=== PATIENT | male | born 1970 | race Caucasian/White ===

== ENCOUNTER 2021-09-07 23:30 | Inpatient (IN) | payer MEDICAID, OTHER ==
[2021-09-08 06:32] LABS: Basophils # (A) 0.1 k/uL (0-0.2); Basophils % (A) 2 %; Eosinophils # (A) 0.2 k/uL (0-0.7); Eosinophils % (A) 3 %; HCT 46.2 % (39.0-53.0); HGB 15.1 gm/dL (13.0-17.5); Lymphocytes # (A) 2.8 k/uL (1.0-4.8); Lymphocytes % (A) 33 %; MCH 30.1 pg (25.0-35.0); MCHC 32.7 g/dL (31.0-37.0); MCV 91.9 fL (80.0-100.0); Mean Platelet Volume 7.8; Monocytes # (A) 0.4 k/uL (0-1.0); Monocytes % (A) 4 %; Neutrophils # (A) 4.7 k/uL (1.3-7.7); Neutrophils % (A) 57 %; Platelet Count 199 k/uL (150-450); RBC 5.02 m/uL (4.30-5.90); RDW 12.8 % (11.5-15.5); WBC 8.3 k/uL (3.8-10.6)
[2021-09-08 06:36] LABS: Amorphous Sediment,Urine Rare /hpf; Appearance,Urine Clear (Clear); Bilirubin,Urine Negative (Negative); Blood,Urine Negative (Negative); Color,Urine Yellow; Glucose,Urine (UA) Negative (Negative); Hyaline Casts,Urine 5 /lpf (0-2); Ketones,Urine Negative (Negative); Leukocyte Esterase,Urine Negative (Negative); Mucus,Urine Many /hpf; Nitrite,Urine Negative (Negative); PH, Urine 5.5 (5.0-8.0); Protein,Urine 1+ (Negative); RBC,Urine 2 /hpf (0-5); Specific Gravity,Urine 1.036 (1.001-1.035); Squamous Epithelial Cell,Urine <1 /hpf (0-4); WBC,Urine 1 /hpf (0-5)
--- NOTE | 2021-09-08 06:41 | ED ---
Psych HPI - General Chief Complaint: Psychiatric Symptoms Stated Complaint: Mental Health Time Seen by Provider: 09/08/21 00:33 Source: patient Mode of arrival: ambulatory - History of Present Illness Initial Comments: This patient is a 50-year-old man who presents here to have evaluation of depressed mood and suicidal ideation. The patient states that his symptoms of been getting worse for couple of weeks. MD Complaint: suicidal ideation, feels depressed Onset/Timin -: week(s) Associated Psychiatric Symptoms: depression, suicidal ideation History of same: Yes Quality: getting worse Improves With: none Worsens With: none - Related Data Allergies Allergy/AdvReac Type Severity Reaction Status Date / Time No Known Allergies Allergy Verified 09/07/21 23:35 Review of Systems ROS Statement: Those systems with pertinent positive or pertinent negative responses have been documented in the HPI. ROS Other: All systems not noted in ROS Statement are negative. Constitutional: Denies: fever, weakness Eyes: Denies: vision change Respiratory: Denies: cough, dyspnea Cardiovascular: Denies: chest pain, palpitations Gastrointestinal: Denies: abdominal pain, vomiting, diarrhea Genitourinary: Denies: dysuria, hematuria Musculoskeletal: Denies: back pain Skin: Denies: rash Neurological: Reports: headache. Denies: weakness, numbness, paresthesias Past Medical History Past Medical History: Hypertension Additional Past Medical History / Comment(s): CABG 2020 History of Any Multi-Drug Resistant Organisms: None Reported Additional Past Surgical History / Comment(s): CABG 2020 Past Psychological History: No Psychological Hx Reported Smoking Status: Current every day smoker Past Alcohol Use History: Occasional Past Drug Use History: Cocaine General Exam General appearance: alert, in no apparent distress Head exam: Present: atraumatic, normocephalic Eye exam: Present: normal appearance. Absent: scleral icterus, conjunctival injection Neck exam: Present: normal inspection, full ROM Respiratory exam: Present: normal lung sounds bilaterally. Absent: respiratory distress, wheezes, rales, rhonchi, stridor Cardiovascular Exam: Present: regular rate, normal rhythm, normal heart sounds. Absent: systolic murmur, diastolic murmur, rubs, gallop GI/Abdominal exam: Present: soft. Absent: distended, tenderness, guarding, adelina ound, rigid, mass Extremities exam: Present: normal inspection, normal capillary refill. Absent: pedal edema, calf tenderness Back exam: Present: normal inspection. Absent: CVA tenderness (R), CVA tenderness (L) Skin exam: Present: warm, dry, intact, normal color. Absent: rash Course Vital Signs 09/07/21 09/08/21 09/08/21 23:31 03:04 04:05 Temperature 96.9 F L 97.9 F Pulse Rate 89 60 Respiratory 16 16 16 Rate Blood Pressure 164/104 153/90 O2 Sat by Pulse 98 96 Oximetry 09/08/21 09/08/21 05:06 06:09 Temperature Pulse Rate Respiratory 16 16 Rate Blood Pressure O2 Sat by Pulse Oximetry Medical Decision Making - Lab Data Result diagrams: 09/08/21 06:23 Lab Results 09/08/21 09/08/21 Range/Units 06: 06:23 WBC 8.3 (3.8-10.6) k/uL RBC 5.02 (4.30-5.90) m/uL Hgb 15.1 (13.0-17.5) gm/dL Hct 46.2 (39.0-53.0) % MCV 91.9 (80.0-100.0) fL MCH 30.1 (25.0-35.0) pg MCHC 32.7 (31.0-37.0) g/dL RDW 12.8 (11.5-15.5) % Plt Count 199 (150-450) k/uL MPV 7.8 Neutrophils % 57 % Lymphocytes % 33 % Monocytes % 4 % Eosinophils % 3 % Basophils % 2 % Neutrophils # 4.7 (1.3-7.7) k/uL Lymphocytes # 2.8 (1.0-4.8) k/uL Monocytes # 0.4 (0-1.0) k/uL Eosinophils # 0.2 (0-0.7) k/uL Basophils # 0.1 (0-0.2) k/uL Urine Color Yellow Urine Appearance Clear (Clear) Urine pH 5.5 (5.0-8.0) Ur Specific [place] 1.036 H (1.001-1.035) Urine Protein 1+ H (Negative) Urine Glucose (UA) Negative (Negative) Urine Ketones Negative (Negative) Urine Blood Negative (Negative) Urine Nitrite Negative (Negative) Urine Bilirubin Negative (Negative) Urine Urobilinogen 4.0 (<2.0) mg/dL Ur Leukocyte Esterase Negative (Negative) Urine RBC 2 (0-5) /hpf Urine WBC 1 (0-5) /hpf Ur Squamous Epith Cells <1 (0-4) /hpf Amorphous Sediment Rare H (None) /hpf Hyaline Casts 5 H (0-2) /lpf Urine Mucus Many H (None) /hpf Disposition Clinical Impression: Mood disorder Disposition: ADMITTED IP TO THIS HOSP Condition: Good Is patient prescribed a controlled substance at d/c from ED?: No Referrals: None,Stated [Primary Care Provider] - 1-2 days
[2021-09-08 06:44] LABS: ALT 12 U/L (4-49); AST 20 U/L (17-59); African American GFR (CKD) >90 (>60 ml/min/1.73 sqM); Albumin 3.9 g/dL (3.5-5.0); Alkaline Phosphatase 83 U/L (38-126); Anion Gap 7 mmol/L; Blood Urea Nitrogen 21 mg/dL (9-20); Calcium 8.7 mg/dL (8.4-10.2); Carbon Dioxide 25 mmol/L (22-30); Chloride 107 mmol/L (98-107); Glucose 104 mg/dL (74-99); Non-African American GFR(CKD) 87 (>60 ml/min/1.73 sqM); Potassium 2.9 mmol/L (3.5-5.1); Sodium 139 mmol/L (137-145); Total Bilirubin 0.6 mg/dL (0.2-1.3); Total Protein 6.1 g/dL (6.3-8.2)
[2021-09-08 06:53] LABS: Amphetamine Screen,Urine Detected (NotDetected); Barbiturate Screen,Urine Not Detected (NotDetected); Benzodiazepines Screen,Urine Not Detected (NotDetected); Cocaine Screen,Urine Detected (NotDetected); Methadone Screen, Urine Not Detected (NotDetected); Opiate Screen,Urine Not Detected (NotDetected); Oxycodone Screen, Urine Not Detected (NotDetected); Phencyclidine Screen,Urine Not Detected (NotDetected); Tricyclic Antidepressant,Urine Not Detected (NotDetected); Urn Cannabinoid Scrn Not Detected (NotDetected)
[2021-09-08] MEDS ORDERED: ACETAMINOPHEN TAB 325 MG TAB PO PRN (07:15)
[2021-09-08] MEDS ORDERED: MAG HYDROX/AL HYDROX/SIMETH 30 ML CUP PO PRN (07:15)
[2021-09-08] MEDS ORDERED: LORazepam 1 MG TAB PO PRN (07:15)
[2021-09-08] MEDS ORDERED: MAGNESIUM HYDROXIDE 2,400 MG/10 ML CUP PO PRN (07:15)
[2021-09-08] MEDS ORDERED: HALOPERIDOL LACTATE 5 MG/ML 1 ML VIAL IM PRN (07:15)
[2021-09-08] MEDS ORDERED: haloperidoL 5 MG TAB PO PRN (07:17)
[2021-09-08] MEDS ORDERED: LORazepam 2 MG/ML INJ IM PRN (07:17)
[2021-09-08] MEDS ORDERED: POTASSIUM CHLORIDE ER 20 MEQ TAB.ER PO STA (07:21)
[2021-09-08] MEDS: NICOTINE 14MG/24HR PATCH TRANSDERM SCH (09:19)
[2021-09-08 10:04] VITALS: RESP 18
[2021-09-08] MEDS: carvediloL 3.125 MG TAB PO SCH (17:54)
[2021-09-08] MEDS: MIRTAZAPINE 15 MG TAB PO SCH (23:00)
--- NOTE | 2021-09-09 08:27 | P.HP ---
Psychiatric H&P - . H&P Date: 09/08/21 History & Physical: Allergies Allergy/AdvReac Type Severity Reaction Status Date / Time No Known Allergies Allergy Verified 09/08/21 11:47 Vital Signs Temp 97.5 F L 09/09/21 07:01 Pulse 54 L 09/09/21 07:01 Resp 18 09/09/21 07:01 BP 171/83 09/09/21 07:01 Pulse Ox 96 09/08/21 08:07 FiO2 Intake & Output 09/08/21 09/09/21 09/09/21 18:59 06:59 18:59 Weight 74.162 kg Laboratory Last Values WBC 8.3 k/uL (3.8-10.6) 09/08/21 06:23 RBC 5.02 m/uL (4.30-5.90) 09/08/21 06:23 Hgb 15.1 gm/dL (13.0-17.5) 09/08/21 06:23 Hct 46.2 % (39.0-53.0) 09/08/21 06:23 MCV 91.9 fL (80.0-100.0) 09/08/21 06:23 MCH 30.1 pg (25.0-35.0) 09/08/21 06:23 MCHC 32.7 g/dL (31.0-37.0) 09/08/21 06:23 RDW 12.8 % (11.5-15.5) 09/08/21 06:23 Plt Count 199 k/uL (150-450) 09/08/21 06:23 MPV 7.8 09/08/21 06:23 Neutrophils % 57 % 09/08/21 06:23 Lymphocytes % 33 % 09/08/21 06:23 Monocytes % 4 % 09/08/21 06:23 Eosinophils % 3 % 09/08/21 06:23 Basophils % 2 % 09/08/21 06:23 Neutrophils # 4.7 k/uL (1.3-7.7) 09/08/21 06:23 Lymphocytes # 2.8 k/uL (1.0-4.8) 09/08/21 06:23 Monocytes # 0.4 k/uL (0-1.0) 09/08/21 06:23 Eosinophils # 0.2 k/uL (0-0.7) 09/08/21 06:23 Basophils # 0.1 k/uL (0-0.2) 09/08/21 06:23 Sodium 139 mmol/L (137-145) 09/08/21 06:23 Potassium 3.7 mmol/L (3.5-5.1) 09/08/21 16:30 Chloride 107 mmol/L (98-107) 09/08/21 06:23 Carbon Dioxide 25 mmol/L (22-30) 09/08/21 06:23 Anion Gap 7 mmol/L 09/08/21 06:23 BUN 21 mg/dL (9-20) H 09/08/21 06:23 Creatinine 0.99 mg/dL (0.66-1.25) 09/08/21 06:23 Est GFR (CKD-EPI)AfAm >90 (>60 ml/min/1.73 sqM) 09/08/21 06:23 Est GFR (CKD-EPI)NonAf 87 (>60 ml/min/1.73 sqM) 09/08/21 06:23 Glucose 104 mg/dL (74-99) H 09/08/21 06:23 Calcium 8.7 mg/dL (8.4-10.2) 09/08/21 06:23 Total Bilirubin 0.6 mg/dL (0.2-1.3) 09/08/21 06: AST 20 U/L (17-59) 09/08/21 06:23 ALT 12 U/L (4-49) 09/08/21 06:23 Alkaline Phosphatase 83 U/L (38-126) 09/08/21 06:23 Total Protein 6.1 g/dL (6.3-8.2) L 09/08/21 06:23 Albumin 3.9 g/dL (3.5-5.0) 09/08/21 06:23 Urine Color Yellow 09/08/21 06:23 Urine Appearance Clear (Clear) 09/08/21 06:23 Urine pH 5.5 (5.0-8.0) 09/08/21 06:23 Ur Specific [place] 1.036 (1.001-1.035) H 09/08/21 06:23 Urine Protein 1+ (Negative) H 09/08/21 06:23 Urine Glucose (UA) Negative (Negative) 09/08/21 06:23 Urine Ketones Negative (Negative) 09/08/21 06:23 Urine Blood Negative (Negative) 09/08/21 06:23 Urine Nitrite Negative (Negative) 09/08/21 06:23 Urine Bilirubin Negative (Negative) 09/08/21 06:23 Urine Urobilinogen 4.0 mg/dL (<2.0) 09/08/21 06:23 Ur Leukocyte Esterase Negative (Negative) 09/08/21 06:23 Urine RBC 2 /hpf (0-5) 09/08/21 06:23 Urine WBC 1 /hpf (0-5) 09/08/21 06:23 Ur Squamous Epith Cells <1 /hpf (0-4) 09/08/21 06:23 Amorphous Sediment Rare /hpf (None) H 09/08/21 06:23 Hyaline Casts 5 /lpf (0-2) H 09/08/21 06:23 Urine Mucus Many /hpf (None) H 09/08/21 06:23 Urine Opiates Screen Not Detected (NotDetected) 09/08/21 06:23 Ur Oxycodone Screen Not Detected (NotDetected) 09/08/21 06:23 Urine Methadone Screen Not Detected (NotDetected) 09/08/21 06:23 Ur Propoxyphene Screen Not Detected (NotDetected) 09/08/21 06:23 Ur Barbiturates Screen Not Detected (NotDetected) 09/08/21 06:23 U Tricyclic Antidepress Not Detected (NotDetected) 09/08/21 06:23 Ur Phencyclidine Scrn Not Detected (NotDetected) 09/08/21 06:23 Ur Amphetamines Screen Detected (NotDetected) H 09/08/21 06:23 U Methamphetamines Scrn Detected (NotDetected) H 09/08/21 06:23 U Benzodiazepines Scrn Not Detected (NotDetected) 09/08/21 06:23 Urine Cocaine Screen Detected (NotDetected) H 09/08/21 06:23 U Marijuana (THC) Screen Not Detected (NotDetected) 09/08/21 06:23 Coronavirus (PCR) Not Detected (Not Detectd) 09/08/21 06:23 09/09/21 08:20 This indicates a 50-year-old male who comes in due to severe depression. Diagnosis: Major depression recurrent nonpsychotic severe Symptoms: The patient is complaining of inability to sleep poor appetite can't concentrate no energy no ability to motivate her organize a response to his life problems. He does feel suicidal and hopeless Subjective: The patient recently moved to [place] because of a job. However he injured his ankle at work and he was working through a temporary agency so the place is working for wouldn't give him Workmen's Compensation or cover for his injury nor what the [facility] help agency. They found himself without a job and without a place to stay. He says that he has a long-term history of struggling with depression but has just toughed it through and not taken medicine in the past. Social history: The patient is the oldest of 3 siblings he says his 2 siblings are doing well fact he denies psychiatric problems in the family except that his father was in [place] and was stable. His parents when the patient was 3 and dad was out of his life dying at age 56 of unknown reasons. His mother and her side the family are stable. As noted he fell and was normal as far as he notes School he was able to earn a GED No history Legal the patient was raised in a rough part of [place] and he was in gangs and bought and sold drugs. Substance abuse: The patient has been a long-term user of cocaine he was clean for 5 months before losing this job and has gone back to using cocaine. He says it costs $100 for each time and he can keep that up for long as he has very little money. Mental status exam: The patient is quite dysfunctional poor ADLs decreased eye contact sad affect. Short-term memory is poor I gave him 3 objects to remember and had to repeat them for immediate recall and he could not remember any after 3 minutes when asked the name didn't presence he said Kim that he thought for a while guessed that Obama and just could not remember. When asked to name the [place] he said the [place] and [facility]. When asked to subtract 7 from 100 he got 92. When asked AND states her life he had no idea. When asked how her cats and snakes alike and different from the stone he had no idea when asked which of the 3 was not a life he said the stone. So what was true about cats and snakes while they're both alive that he could not think of any other similarity. When given the proverb the grass looks screen on that side of the fence he said jump over the fence. He is concrete as very poor problem solving abilities. However he does have insight when I reviewed the elements of function impacted by depression and asked him whether he thinks his current depression is just from the stress in his life or whether he is would need medications to handle it he felt he didn't need medications. Plan number to see if he tolerates mirtazapine and works on all 3 serotonin norepinephrine and dopamine and is not addicting and with his having an use cocaine I think he really needs some help on the dopamine.
[2021-09-09 08:54] LABS: ALT 11 U/L (4-49); AST 17 U/L (17-59); African American GFR (CKD) 82 (>60 ml/min/1.73 sqM); Albumin 3.8 g/dL (3.5-5.0); Alkaline Phosphatase 82 U/L (38-126); Anion Gap 5 mmol/L; Bilirubin, Delta 0.1 mg/dL (0.0-0.2); Bilirubin,Unconjugated 0.5 mg/dL (0.0-1.1); Blood Urea Nitrogen 15 mg/dL (9-20); Calcium 9.1 mg/dL (8.4-10.2); Carbon Dioxide 29 mmol/L (22-30); Chloride 105 mmol/L (98-107); Glucose 92 mg/dL (74-99); Magnesium 1.9 mg/dL (1.6-2.3); Non-African American GFR(CKD) 71 (>60 ml/min/1.73 sqM); Potassium 3.8 mmol/L (3.5-5.1); Sodium 139 mmol/L (137-145); Total Bilirubin 0.6 mg/dL (0.2-1.3); Total Protein 6.1 g/dL (6.3-8.2)
[2021-09-09] MEDS: DILTIAZEM CD 120 MG CAP.ER.24H PO SCH (09:24)
[2021-09-09] MEDS: lisinopriL 10 MG TAB PO SCH (09:24)
[2021-09-09] MEDS: carvediloL 3.125 MG TAB PO SCH ×2 (09:24→17:45)
[2021-09-09] MEDS: CLOPIDOGREL 75 MG TAB PO SCH (09:24)
[2021-09-09] MEDS: PANTOPRAZOLE 40 MG TABLET PO SCH (09:24)
[2021-09-09] MEDS: ATORVASTATIN 80 MG TAB PO SCH (09:24)
[2021-09-09] MEDS: NICOTINE 14MG/24HR PATCH TRANSDERM SCH (09:25)
--- NOTE | 2021-09-09 10:26 | P.HPIM ---
History of Present Illness H&P Date: 09/09/21 Chief Complaint: Severe depression 50-year-old male with past medical history significant for coronary disease status post bypass surgery in [place] in 2020 patient is not very good historian he stated that he had 4 bypass surgeries. He denies any history of diabetes he does have history hypertension. Patient was admitted to the psych floor for severe depression and suicidal ideation. Drug screen is positive for cocaine and methamphetamine. Patient stated that he is a smoker smokes since he was 12 years old and continues to smoke 1 pack per day. Drinks alcohol occasionally. Patient denies any history of cancer, stroke, DVT or PE. Patient is alert oriented 3. He denies any chest pain or shortness of breath. He denies any nausea vomiting abdominal pain. Patient denies any recent travel sick contact. Review of systems: All 14 review of systems evaluated and all negative except for above. Physical exam patient: General: non toxic, no distress, appears at stated age Derm: warm, dry Head: atraumatic, normocephalic, symmetric Eyes: EOMI, no lid lag, anicteric sclera Mouth: no lip lesion, mucus membranes moist Cardiovascular: S1S2 reg, no murmur, positive posterior tibial pulse bilateral, Lungs: CTA bilateral, no rhonchi, no rales , no accessory muscle use Abdominal: soft, nontender to palpation, no guarding, no appreciable organomegaly Ext: no gross muscle atrophy, no edema, no contractures Neuro: CN II-XI grossly intact, no focal neuro deficits Psych: Alert, oriented, appropriate affect Social history: The patient is the oldest of 3 siblings he says his 2 siblings are doing well fact he denies psychiatric problems in the family except that his father was in [place] and was stable. His parents when the patient was 3 and dad was out of his life dying at age 56 of unknown reasons. His mother and her side the family are stable. As noted he fell and was normal as far as he notes School he was able to earn a GED No history Legal the patient was raised in a rough part of [place] and he was in gangs and bought and sold drugs. Substance abuse: The patient has been a long-term user of cocaine he was clean for 5 months before losing this job and has gone back to using cocaine. He says it costs $100 for each time and he can keep that up for long as he has very little money. Assessment and plan: #History of coronary disease status post CABG August 2020 -Obtain old records from his last admissions at [place] -Resume home medications #Hypokalemia -Replaced #Polysubstance abuse #Ongoing tobacco abuse -Patient was counseled regarding smoking cessation and supplement abuse #Severe depression with suicidal ideation -Regimen per psych team. Past Medical History Past Medical History: Hypertension Additional Past Medical History / Comment(s): CABG 2020 History of Any Multi-Drug Resistant Organisms: None Reported Additional Past Surgical History / Comment(s): CABG 2020 Past Anesthesia/Blood Transfusion Reactions: No Reported Reaction Past Psychological History: Depression Smoking Status: Current every day smoker Past Alcohol Use History: Occasional Past Drug Use History: Cocaine, Methamphetamine Additional Drug Use History / Comment(s): UDS positive for amphetamines, meth, and cocaine. Medications and Allergies Home Medications Medication Instructions Recorded Confirmed Type Atorvastatin [Lipitor] 80 mg PO DAILY 09/08/21 09/08/21 History Clopidogrel [Plavix] 75 mg PO DAILY 09/08/21 09/08/21 History Diltiazem Cd [Cardizem CD] 120 mg PO DAILY 09/08/21 09/08/21 History Pantoprazole [Protonix] 40 mg PO DAILY 09/08/21 09/08/21 History carvediloL [Coreg] 3.125 mg PO BID 09/08/21 09/08/21 History lisinopriL [Zestril] 10 mg PO DAILY 09/08/21 09/08/21 History Allergies Allergy/AdvReac Type Severity Reaction Status Date / Time No Known Allergies Allergy Verified 09/08/21 11:47 Physical Exam Vitals: Vital Signs Temp Pulse Resp BP 09/09/21 07:01 97.5 F L 54 L 18 171/83 09/08/21 17:51 102 H 153/90 Intake and Output 09/08/21 09/09/21 09/09/21 22:59 06:59 14:59 Other: Weight 75.3 kg Results CBC & Chem 7: 09/08/21 06:23 09/09/21 07:56 Labs: Abnormal Lab Results - Last 24 Hours (Table) 09/09/21 Range/Units 07:56 Total Protein 6.1 L (6.3-8.2) g/dL Thrombosis Risk Factor Assmnt - Choose All That Apply Any of the Below Risk Factors Present?: Yes Each Factor Represents 1 point: Age 41-60 years Other Risk Factors: No Other congenital or acquired thrombophilia - If yes, enter type in comment: No Thrombosis Risk Factor Assessment Total Risk Factor Score: 1 Thrombosis Risk Factor Assessment Level: Low Risk
[2021-09-09 12:01] LABS: Chol/HDL Ratio 4.84 Ratio; LDL Cholesterol,Calculated 115.8 mg/dL (0.0-131.0)
--- NOTE | 2021-09-09 12:32 | P.PN ---
Subjective Progress Note Date: 09/09/21 Principal diagnosis: Major depression recurrent severe nonpsychotic Cocaine use disorder Subjective: Patient is a little sleepy but not severe, worrying about the future and feeling kind of hopeless. Substance abuse: The patient has been a long-term user of cocaine he was clean for 5 months before losing this job and has gone back to using cocaine. He says it costs $100 for each time and he can keep that up for long as he has very little money. Mental status exam: The patient is quite dysfunctional poor ADLs decreased eye contact sad affect. Short-term memory is poor I gave him 3 objects to remember and had to repeat them for immediate recall and he could not remember any after 3 minutes when asked the name didn't presence he said Kim that he thought for a while guessed that [place] and just could not remember. When asked to name the [facility] [employer] he said the [facility] and [facility]. When asked to subtract 7 from 100 he got 92. When asked AND states her life he had no idea. When asked how her cats and snakes alike and different from the stone he had no idea when asked which of the 3 was not a life he said the stone. So what was true about cats and snakes while they're both alive that he could not think of any other similarity. When given the proverb the grass looks screen on that side of the fence he said jump over the fence. He is concrete as very poor problem solving abilities. However he does have insight when I reviewed the elements of function impacted by depression and asked him whether he thinks his current depression is just from the stress in his life or whether he is would need medications to handle it he felt he didn't need medications. Plan: He continues to need hospitalization as he is hopeless and depressed has no place to go and needs help both with the cocaine in the depression and some social resources. Continue mirtazapine and consider increasing dose as that works on all 3 serotonin, norepinephrine, and dopamine and is not addicting and with his having a cocaine use disorder, I think he really needs some help on the dopamine. Objective - Vital Signs Vital signs: Vital Signs Temp 97.5 F L 09/09/21 07:01 Pulse 54 L 09/09/21 07:01 Resp 18 09/09/21 07:01 BP 171/83 09/09/21 07:01 Pulse Ox 96 09/08/21 08:07 FiO2 Intake & Output 09/08/21 09/09/21 09/09/21 18:59 06:59 18:59 Weight 74.162 kg 75.3 kg - Labs CBC & Chem 7: 09/08/21 06:23 09/09/21 07:56 Labs: Abnormal Lab Results - Last 24 Hours (Table) 09/09/21 Range/Units 07:56 Total Protein 6.1 L (6.3-8.2) g/dL Triglycerides 159.00 H (0.00-149.00) mg/dL HDL Cholesterol 38.40 L (40.00-60.00) mg/dL
[2021-09-09] MEDS: MIRTAZAPINE 15 MG TAB PO SCH (20:44)
[2021-09-10 07:59] LABS: African American GFR (CKD) >90 (>60 ml/min/1.73 sqM); Anion Gap 5 mmol/L; Blood Urea Nitrogen 12 mg/dL (9-20); Carbon Dioxide 26 mmol/L (22-30); Chloride 108 mmol/L (98-107); Glucose 89 mg/dL (74-99); Magnesium 1.9 mg/dL (1.6-2.3); Non-African American GFR(CKD) 81 (>60 ml/min/1.73 sqM); Potassium 3.9 mmol/L (3.5-5.1); Sodium 139 mmol/L (137-145)
[2021-09-10] MEDS: lisinopriL 10 MG TAB PO SCH (08:50)
[2021-09-10] MEDS: ATORVASTATIN 80 MG TAB PO SCH (08:50)
[2021-09-10] MEDS: CLOPIDOGREL 75 MG TAB PO SCH (08:50)
[2021-09-10] MEDS: DILTIAZEM CD 120 MG CAP.ER.24H PO SCH (08:50)
[2021-09-10] MEDS: carvediloL 3.125 MG TAB PO SCH ×2 (08:50→17:46)
[2021-09-10] MEDS: PANTOPRAZOLE 40 MG TABLET PO SCH (08:50)
[2021-09-10] MEDS: NICOTINE 14MG/24HR PATCH TRANSDERM SCH (08:52)
--- NOTE | 2021-09-10 11:30 | P.PN ---
Progress Note - Text Progress Note Date: 09/10/21 Interval History: Patient was seen resting in bed and was directable and agreeable to speak with web content writer in his room. Earlier, the patient continues to endorse suicidal ideation the context of chronic homelessness, lack of support, and lack of finances. Patient reports that he currently has no home, no vehicle, and is originally from [facility] [place]. The patient expresses that he has been engaging in significant substance use with his drugs of choice being crack cocaine, alcohol, and occasional methamphetamines. The patient denies any recent use of any illicit drugs however did test positive for methamphetamines upon admission. He states he looks to obtain sober living housing. He was encouraged to contact the access number. The patient is currently denying any chest pain, Jaclyn of breath, palpitations, lightheadedness, or any issues regarding his cardiov ascular health. Medical is following. Mental Status Exam: General Appearance: Patient appears to be stated age is alert, directable, and cooperative. Behavior: Patient is calmly lying down in bed without any agitated behavior. Fair eye contact. Speech: Patient's speech is fluent and nonpressured. Mood/Affect: Mood is described as depressed, affect is incongruent and somewhat euthymic. Suicidality/Homicidality: Patient reports suicidal ideation however denies any homicidal ideation. Perceptions: Patient denies any visual hallucinations and denies any auditory hallucinations Though content/process: There is no evidence of any delusional thought content and thought process is linear and goal-directed. Patient is guarded and evasive regarding substance use. Memory and concentration: AOX3, grossly intact for the purposes of this session Judgment and insight: Fair Vital Signs Temp 97.5 F L 09/09/21 07:01 Pulse 67 09/10/21 08:52 Resp 18 09/10/21 08:52 BP 192/92 09/10/21 08:52 Pulse Ox 96 09/08/21 08:07 FiO2 Intake & Output 09/09/21 09/10/21 09/10/21 18:59 06:59 18:59 Weight 75.3 kg Laboratory Results - Last 24 Hours 09/09/21 09/09/21 09/10/21 07:56 07:56 06:54 Sodium 139 Potassium 3.9 Chloride 108 H Carbon Dioxide 26 Anion Gap 5 BUN 12 Creatinine 1.06 Est GFR (CKD-EPI)AfAm >90 Est GFR (CKD-EPI)NonAf [address] Glu mg/dL 120 Hemoglobin A1c 5.8 Calcium 9.0 Magnesium 1.9 Triglycerides 159.00 H Cholesterol 186.00 LDL Cholesterol, Calc 115.8 VLDL Cholesterol, Calc 31.80 HDL Cholesterol 38.40 L Cholesterol/HDL Ratio 4.84 Assessment Major depressive disorder, recurrent, severe Cocaine use disorder Methamphetamine use disorder Alcohol use disorder Tobacco use disorder Rule out antisocial personality disorder Plan: -Patient continues to meet criteria for inpatient psychiatric admission for symptom stabilization and safety. Patient has signed adult voluntary form and medication consent and was placed in patient's chart. -Medications: Continue Remeron 15 mg by mouth at bedtime for depression -When necessary Ativan and Haldol for agitation/aggression. -NRT - nicotine patch -SW on board for discharge planning. Encouraged the patient to participate in milieu.
[2021-09-10] MEDS: MIRTAZAPINE 15 MG TAB PO SCH (21:02)
[2021-09-11 06:58] VITALS: BP 177/98; PULSE 64; TEMP 99.4
[2021-09-11 07:37] LABS: Calcium 9.1 mg/dL (8.4-10.2); Magnesium 1.9 mg/dL (1.6-2.3); Potassium 4.5 mmol/L (3.5-5.1)
[2021-09-11] MEDS: carvediloL 3.125 MG TAB PO SCH (08:24)
[2021-09-11] MEDS: DILTIAZEM CD 120 MG CAP.ER.24H PO SCH (08:24)
[2021-09-11] MEDS: CLOPIDOGREL 75 MG TAB PO SCH (08:24)
[2021-09-11] MEDS: PANTOPRAZOLE 40 MG TABLET PO SCH (08:24)
[2021-09-11] MEDS: ATORVASTATIN 80 MG TAB PO SCH (08:24)
[2021-09-11] MEDS: lisinopriL 10 MG TAB PO SCH (08:24)
[2021-09-11] MEDS: NICOTINE 14MG/24HR PATCH TRANSDERM SCH (08:24)
--- NOTE | 2021-09-11 13:31 | P.DS ---
Providers Date of admission: 09/08/21 07:04 Expected date of discharge: 09/11/21 Attending physician: Omar Cobian MD Consults: 09/08/21 07:15 Consult Physician Routine Consulting Provider: Maria A Physician Consult Reason/Comments: Medical H&P Do you want consulting provider notified?: Yes Primary care physician: Stated None - Discharge Diagnosis(es) (1) Major depressive disorder Current Visit: Yes Status: Acute Priority: High (2) Cocaine use disorder Current Visit: Yes Status: Chronic Priority: Medium (3) Methamphetamine use disorder, moderate, dependence Current Visit: Yes Status: Chronic Priority: Medium (4) Alcohol use disorder Current Visit: Yes Status: Chronic Priority: Medium (5) Tobacco use disorder Current Visit: Yes Status: Chronic Priority: Medium Hospital Course: Admission HPI: Initial psychiatric evaluation was completed by Dr Maldonado on 09/09/2021 who wrote: "Major depression recurrent nonpsychotic severe Symptoms: The patient is complaining of inability to sleep poor appetite can't concentrate no energy no ability to motivate her organize a response to his life problems. He does feel suicidal and hopeless Subjective: The patient recently moved to [place] because of a job. However he injured his ankle at work and he was working through a temporary agency so the place is working for wouldn't give him Workmen's Compensation or cover for his injury nor what the [facility] help agency. They found himself without a job and without a place to stay. He says that he has a long-term history of struggling with depression but has just toughed it through and not taken medicine in the past." Hospital course: Upon admission to the unit patient was initially guarded however endorsing depression and suicidal ideation in the context of substance abuse. Patient was however directable and agreeable to commence treatment. Patient got along well with other patients on the unit and followed unit protocol. Patient was compliant with the medications and denied any side effects throughout hospital course. Patient was started on Remeron for management of his depression, insomnia, and appetite stimulation. Patient spoke of his stressors and engaged in therapy both group and individual. Patient was also seen by medical team for history and physical exam. With the course of the hospitalization, the patient displayed significant improvement although is very minimal and his engagement with milieu activities. The patient did test positive for illicit substances including amphetamines, methamphetamines, and cocaine. The patient had elevated blood pressure throughout the hospitalization however denied any significant cardiac symptoms. He reported no chest pain, shortness of breath, palpitations, or lightheadedness. He was also evaluated by the medical team for history and physical examination. On the day of discharge, the patient is not reporting any suicidal or homicidal ideation, intention, and/or plan. He is not reporting any auditory or visual hallucinations. He denies any paranoia or other delusions. The patient has been in adherent with his medication is not endorsing any significant side effects at this time. The patient does have a significant history of substance abuse however was counseled on abstaining from all substances including alcohol, marijuana, and especially methamphetamines and cocaine. The patient was offered inpatient substance abuse rehabilitation to which she declined. The patient denies any access to firearms or other weapons. The patient was counseled on the importance of medication adherence and appropriate outpatient follow-up. Prior to discharge, family meeting was arranged by clinical social worker to answer any questions and ensure safety. Mental status exam: General Appearance: Patient appears to be stated age is alert, pleasant, and cooperative. Patient is in no acute distress and has fair hygiene and grooming Behavior: Patient is calmly seated without any agitated behavior. Speech: Patient's speech is fluent and nonpressured. Mood/Affect: Patient reports their mood is "feeling good to go", affect is congruent and euthymic. Suicidality/Homicidality: Patient denies having any suicidal or homicidal ideation intent or plan. Perceptions: Patient denies any auditory or visual hallucinations. Though content/process: There is no evidence of any delusional thought content and thought process is linear and goal-directed. more future oriented Memory and concentration: AOX3, grossly intact for the purposes of this session. Can spell "WORLD" backwards correctly. Judgment and insight: Improved with guarded prognosis Vital Signs Temp 99.4 F 09/11/21 06:58 Pulse 64 09/11/21 06:58 Resp 18 09/10/21 08:52 BP 177/98 09/11/21 06:58 Pulse Ox 99 09/11/21 06:58 FiO2 Laboratory Results WBC 8.3 k/uL (3.8-10.6) 09/08/21 06:23 RBC 5.02 m/uL (4.30-5.90) 09/08/21 06:23 Hgb 15.1 gm/dL (13.0-17.5) 09/08/21 06:23 Hct 46.2 % (39.0-53.0) 09/08/21 06:23 MCV 91.9 fL (80.0-100.0) 09/08/21 06:23 MCH 30.1 pg (25.0-35.0) 09/08/21 06:23 MCHC 32.7 g/dL (31.0-37.0) 09/08/21 06:23 RDW 12.8 % (11.5-15.5) 09/08/21 06:23 Plt Count 199 k/uL (150-450) 09/08/21 06:23 MPV 7.8 09/08/21 06:23 Neutrophils % 57 % 09/08/21 06:23 Lymphocytes % 33 % 09/08/21 06:23 Monocytes % 4 % 09/08/21 06:23 Eosinophils % 3 % 09/08/21 06:23 Basophils % 2 % 09/08/21 06:23 Neutrophils # 4.7 k/uL (1.3-7.7) 09/08/21 06:23 Lymphocytes # 2.8 k/uL (1.0-4.8) 09/08/21 06:23 Monocytes # 0.4 k/uL (0-1.0) 09/08/21 06:23 Eosinophils # 0.2 k/uL (0-0.7) 09/08/21 06:23 Basophils # 0.1 k/uL (0-0.2) 09/08/21 06:23 Sodium 142 mmol/L (137-145) 09/11/21 06:44 Potassium 4.5 mmol/L (3.5-5.1) 09/11/21 06:44 Chloride 108 mmol/L (98-107) H 09/11/21 06:44 Carbon Dioxide 28 mmol/L (22-30) 09/11/21 06:44 Anion Gap 6 mmol/L 09/11/21 06:44 BUN 15 mg/dL (9-20) 09/11/21 06:44 Creatinine 1.16 mg/dL (0.66-1.25) 09/11/21 06:44 Est GFR (CKD-EPI)AfAm 84 (>60 ml/min/1.73 sqM) 09/11/21 06:44 Est GFR (CKD-EPI)NonAf 73 (>60 ml/min/1.73 sqM) 09/11/21 06:44 Glucose 86 mg/dL (74-99) 09/11/21 06:[address] Glu mg/dL 120 09/09/21 07:56 Hemoglobin A1c 5.8 % (0.0-6.0) 09/09/21 07:56 Calcium 9.1 mg/dL (8.4-10.2) 09/11/21 06:44 Magnesium 1.9 mg/dL (1.6-2.3) 09/11/21 06:44 Total Bilirubin 0.6 mg/dL (0.2-1.3) 09/09/21 07:56 Conjugated Bilirubin 0.0 mg/dL (0.0-0.3) 09/09/21 07:56 Unconjugated Bilirubin 0.5 mg/dL (0.0-1.1) 09/09/21 07:56 Delta Bilirubin 0.1 mg/dL (0.0-0.2) 09/09/21 07:56 AST 17 U/L (17-59) 09/09/21 07:56 ALT 11 U/L (4-49) 09/09/21 07:56 Alkaline Phosphatase 82 U/L (38-126) 09/09/21 07:56 Total Protein 6.1 g/dL (6.3-8.2) L 09/09/21 07:56 Albumin 3.8 g/dL (3.5-5.0) 09/09/21 07:56 Triglycerides 159.00 mg/dL (0.00-149.00) H 09/09/21 07:56 Cholesterol 186.00 mg/dL (0.00-200.00) 09/09/21 07:56 LDL Cholesterol, Calc 115.8 mg/dL (0.0-131.0) 09/09/21 07:56 VLDL Cholesterol, Calc 31.80 mg/dL (5.00-40.00) 09/09/21 07:56 HDL Cholesterol 38.40 mg/dL (40.00-60.00) L 09/09/21 07:56 Cholesterol/HDL Ratio 4.84 Ratio 09/09/21 07:56 TSH 0.692 mIU/L (0.465-4.680) 09/09/21 07:56 Urine Color Yellow 09/08/21 06:23 Urine Appearance Clear (Clear) 09/08/21 06:23 Urine pH 5.5 (5.0-8.0) 09/08/21 06:23 Ur Specific [place] 1.036 (1.001-1.035) H 09/08/21 06:23 Urine Protein 1+ (Negative) H 09/08/21 06:23 Urine Glucose (UA) Negative (Negative) 09/08/21 06:23 Urine Ketones Negative (Negative) 09/08/21 06:23 Urine Blood Negative (Negative) 09/08/21 06:23 Urine Nitrite Negative (Negative) 09/08/21 06:23 Urine Bilirubin Negative (Negative) 09/08/21 06:23 Urine Urobilinogen 4.0 mg/dL (<2.0) 09/08/21 06:23 Ur Leukocyte Esterase Negative (Negative) 09/08/21 06:23 Urine RBC 2 /hpf (0-5) 09/08/21 06:23 Urine WBC 1 /hpf (0-5) 09/08/21 06:23 Ur Squamous Epith Cells <1 /hpf (0-4) 09/08/21 06:23 Amorphous Sediment Rare /hpf (None) H 09/08/21 06:23 Hyaline Casts 5 /lpf (0-2) H 09/08/21 06:23 Urine Mucus Many /hpf (None) H 09/08/21 06:23 Urine Opiates Screen Not Detected (NotDetected) 09/08/21 06:23 Ur Oxycodone Screen Not Detected (NotDetected) 09/08/21 06:23 Urine Methadone Screen Not Detected (NotDetected) 09/08/21 06:23 Ur Propoxyphene Screen Not Detected (NotDetected) 09/08/21 06:23 Ur Barbiturates Screen Not Detected (NotDetected) 09/08/21 06:23 U Tricyclic Antidepress Not Detected (NotDetected) 09/08/21 06:23 Ur Phencyclidine Scrn Not Detected (NotDetected) 09/08/21 06:23 Ur Amphetamines Screen Detected (NotDetected) H 09/08/21 06:23 U Methamphetamines Scrn Detected (NotDetected) H 09/08/21 06:23 U Benzodiazepines Scrn Not Detected (NotDetected) 09/08/21 06:23 Urine Cocaine Screen Detected (NotDetected) H 09/08/21 06:23 U Marijuana (THC) Screen Not Detected (NotDetected) 09/08/21 06:23 Coronavirus (PCR) Not Detected (Not Detectd) 09/08/21 06:23 Allergies Allergy/AdvReac Type Severity Reaction Status Date / Time No Known Allergies Allergy Verified 09/08/21 11:47 Impression: Major depressive disorder, recurrent, severe Cocaine use disorder Methamphetamine use disorder Alcohol use disorder Tobacco use disorder Plan: -Continue with discharge today as patient has improved and stabilized psychiatrically and is not currently an imminent threat to himself and/or others. Patient will remain at chronically elevated risk for harm to self and/or others due to his impulsivity and polysubstance abuse. -Continue medications: Remeron 15 mg by mouth at bedtime for depression -Patient was counseled on the need for medication compliance and appropriate follow-up at mental health and also primary care for medical issues. Patient verbalized understanding and agreed. -Social work to arrange for and conduct family meeting to ensure safety upon discharge and answer any questions/concerns. Social work also to arrange for patients follow up appointments with [facility] for psychiatric care along with follow up with primary care provider. -Patient counseled on abstaining from recreational drugs and marijuana and alcohol. Was informed/educated on the adverse effects on their physical and mental health. Patient verbally agreed and understood. Patient was offered substance abuse treatment however declined at this time. -Patient was instructed to return to the hospital or seek immediate medical care if their psychiatric or medical symptoms do worsen or reoccur. -Psychoeducation and supportive therapy provided to patient. Risks and benefits of pharmacological treatment versus the risks and benefits of nontreatment weight and discussed. Informed consent discussion held. Common side effects of psychotropics discussed such as, but not limited to headache, GI disturbance, sexual dysfunction, movement disorders, sedation, and orthostatic hypotension. Life threatening and blackbox warnings of prescribed medications also discussed. Potential risks of operating a vehicle or heavy machinery discussed with patient at length. Advised on importance of compliance and a reliable and responsible manner. Patient advised to review FDA consumer labeling of all medications prior to taking. Patient verbalized understanding of potential risks, and agrees with current treatment plan. Patient advised to medically contact physician/emergency personnel if any acute changes in condition occur. Patient Condition at Discharge: Stable Plan - Discharge Summary Discharge Rx Participant: No New Discharge Prescriptions: New Mirtazapine [Remeron] 15 mg PO HS 30 Days tab Continue lisinopriL [Zestril] 10 mg PO DAILY carvediloL [Coreg] 3.125 mg PO BID Pantoprazole [Protonix] 40 mg PO DAILY Diltiazem Cd [Cardizem CD] 120 mg PO DAILY Atorvastatin [Lipitor] 80 mg PO DAILY Clopidogrel [Plavix] 75 mg PO DAILY Discharge Medication List Atorvastatin [Lipitor] 80 mg PO DAILY 09/08/21 [History] Clopidogrel [Plavix] 75 mg PO DAILY 09/08/21 [History] Diltiazem Cd [Cardizem CD] 120 mg PO DAILY 09/08/21 [History] Pantoprazole [Protonix] 40 mg PO DAILY 09/08/21 [History] carvediloL [Coreg] 3.125 mg PO BID 09/08/21 [History] lisinopriL [Zestril] 10 mg PO DAILY 09/08/21 [History] Mirtazapine [Remeron] 15 mg PO HS 30 Days tab 09/11/21 [Rx] Follow up Appointment(s)/Referral(s): [facility] [Outside] - 09/18/21 9:00 am (With intake counselor) None,Stated [Primary Care Provider] - 1-2 days [facility] [NON-STAFF] - 1 Week Patient Instructions/Handouts: How to Stop Smoking (DC), Mood Disorders (DC), Depression (DC) Activity/Diet/Wound Care/Special Instructions: Activity and diet as tolerated. Avoid the use of street drugs and alcohol. Take all medications as prescribed. When you are in need of refills on your medications please contact your medical provider and/or outpatient psychiatrist to have this done. Please go to scheduled outpatient appointment for aftercare treatment. If symptoms return or become worse, call the crisis line at and/or go to the nearest emergency room for evaluation Discharge Disposition: HOME SELF-CARE
== END 2021-09-11 13:27 | disposition home or self-care (01) | DRG 885 ==
LOC: EC 23:30 → 3MHU 09-08 07:04
PROVIDERS: ADMIT Psychiatry & Neurology Psychiatry; ATTEND Psychiatry & Neurology Psychiatry
DX: F33.2 Major depressive disorder, recurrent severe without psychotic features (principal); R45.851 Suicidal ideations; F15.20 Other stimulant dependence, uncomplicated; I25.10 Atherosclerotic heart disease of native coronary artery without angina pectoris; Z20.822 Contact with and (suspected) exposure to COVID-19; F14.10 Cocaine abuse, uncomplicated; F10.10 Alcohol abuse, uncomplicated; I10 Essential (primary) hypertension; G47.00 Insomnia, unspecified; F17.210 Nicotine dependence, cigarettes, uncomplicated; E87.6 Hypokalemia; Z59.00 Homelessness unspecified; Z79.02 Long term (current) use of antithrombotics/antiplatelets; Z79.899 Other long term (current) drug therapy; Z95.1 Presence of aortocoronary bypass graft; Z71.51 Drug abuse counseling and surveillance of drug abuser; Z71.6 Tobacco abuse counseling
CPT/HCPCS: 36415; 80048; 80053; 80061; 80076; 80306; 81001; 82075; 83036; 83735; 84132; 84443; 85025; 87635; 99285

== ENCOUNTER 2022-02-21 05:02 | Inpatient (IN) | payer MEDICAID, OTHER ==
--- NOTE | 2022-02-21 07:19 | ED ---
Psych HPI - General Chief Complaint: Psychiatric Symptoms Stated Complaint: Suicidal Time Seen by Provider: 02/21/22 05:30 Source: patient Mode of arrival: ambulatory - History of Present Illness Initial Comments: 51-year-old male with past history of coronary artery disease status post CABG, Cocaine and methamphetamine abuse who presents to the emergency room with suicidal ideations. Patient reports that he lost his job 3 weeks ago and his fianc broke up with him. He has been staying in a homeless group home. He feels depressed and has suicidal ideation with a plan that he will walk out into traffic or jump off a bridge. Denies any attempt at harming himself. He denies alcohol use. He does smoke. No homicidal ideations. Has been hospitalized previously for depression and suicidal ideations. Patient was hospitalized at our facility earlier this year. He states he cannot remember if he was placed on any medications for his mood. He is not following with the psychiatrist at this time. No other alleviating, precipitating or modifying factors - Related Data Home Medications Medication Instructions Recorded Confirmed Atorvastatin [Lipitor] 80 mg PO DAILY 09/08/21 02/21/22 Clopidogrel [Plavix] 75 mg PO DAILY 09/08/21 02/21/22 Diltiazem Cd [Cardizem CD] 120 mg PO DAILY 09/08/21 02/21/22 Pantoprazole [Protonix] 40 mg PO DAILY 09/08/21 02/21/22 carvediloL [Coreg] 3.125 mg PO BID 09/08/21 02/21/22 lisinopriL [Zestril] 10 mg PO DAILY 09/08/21 02/21/22 Allergies Allergy/AdvReac Type Severity Reaction Status Date / Time No Known Allergies Allergy Verified 09/08/21 11:47 Review of Systems ROS Statement: Those systems with pertinent positive or pertinent negative responses have been documented in the HPI. ROS Other: All systems not noted in ROS Statement are negative. Past Medical History Past Medical History: Hypertension Additional Past Medical History / Comment(s): CABG 2020 History of Any Multi-Drug Resistant Organisms: None Reported Additional Past Surgical History / Comment(s): CABG 2020 Past Anesthesia/Blood Transfusion Reactions: No Reported Reaction Past Psychological History: Depression Smoking Status: Current every day smoker Past Alcohol Use History: Occasional Past Drug Use History: Cocaine, Methamphetamine General Exam General appearance: alert, in no apparent distress Head exam: Present: atraumatic, normocephalic, normal inspection Eye exam: Present: normal appearance, PERRL, EOMI. Absent: scleral icterus, conjunctival injection, periorbital swelling ENT exam: Present: normal exam, mucous membranes moist Neck exam: Present: normal inspection. Absent: tenderness, meningismus, lymphadenopathy Respiratory exam: Present: normal lung sounds bilaterally. Absent: respiratory distress, wheezes, rales, rhonchi, stridor Cardiovascular Exam: Present: regular rate, normal rhythm, normal heart sounds. Absent: systolic murmur, diastolic murmur, rubs, gallop, clicks GI/Abdominal exam: Present: soft, normal bowel sounds. Absent: distended, tenderness, guarding, rebound, rigid Extremities exam: Present: normal inspection, full ROM, normal capillary refill. Absent: tenderness, pedal edema, joint swelling, calf tenderness Back exam: Present: normal inspection Neurological exam: Present: alert, oriented X3, CN II-XII intact Psychiatric exam: Present: depressed, flat affect Skin exam: Present: warm, dry, intact, normal color. Absent: rash Course Vital Signs 02/21/22 02/21/22 05:26 06:46 Temperature 98.6 F Pulse Rate 81 Respiratory 19 Rate Blood Pressure 174/99 168/79 O2 Sat by Pulse 98 Oximetry Medical Decision Making - Medical Decision Making Upon arrival patient was placed in room 7. A thorough history and physical exam was performed. Patient is not intoxicated. He is stable for evaluation at this time and we are currently awaiting the recommendations - Lab Data Result diagrams: 02/22/22 06:39 02/22/22 06:39 Lab Results 02/21/22 Range/Units 09:16 Coronavirus (PCR) Not Detected (Not Detectd) Disposition Clinical Impression: Major depressive disorder Disposition: TRANSFER TO PSYCH HOSP/UNIT Condition: Stable Is patient prescribed a controlled substance at d/c from ED?: No
[2022-02-21] MEDS ORDERED: MAG HYDROX/AL HYDROX/SIMETH 355 ML BOTTLE PO PRN (10:06)
[2022-02-21] MEDS ORDERED: ACETAMINOPHEN TAB 325 MG TAB PO PRN (10:06)
[2022-02-21] MEDS ORDERED: MAGNESIUM HYDROXIDE 2,400 MG/10 ML CUP PO PRN (10:06)
[2022-02-21] MEDS ORDERED: OLANZapine 5 MG TAB PO PRN (10:10)
[2022-02-21] MEDS ORDERED: hydrOXYzine pamoate 25 MG CAP PO PRN (10:10)
[2022-02-21] MEDS ORDERED: hydrOXYzine HCL 50 MG/ML 1 ML VIAL IM PRN (10:10)
[2022-02-21] MEDS ORDERED: OLANZapine 10 MG VIAL IM PRN (10:10)
[2022-02-21] MEDS: DILTIAZEM CD 120 MG CAP.ER.24H PO SCH (11:14)
[2022-02-21] MEDS: carvediloL 3.125 MG TAB PO SCH ×2 (11:14→21:17)
[2022-02-21 11:37] LABS: Amphetamine Screen,Urine Not Detected (NotDetected); Appearance,Urine Clear (Clear); Barbiturate Screen,Urine Not Detected (NotDetected); Benzodiazepines Screen,Urine Not Detected (NotDetected); Bilirubin,Urine Negative (Negative); Blood,Urine Trace (Negative); Cocaine Screen,Urine Detected (NotDetected); Color,Urine Yellow; Glucose,Urine (UA) Negative (Negative); Ketones,Urine Negative (Negative); Leukocyte Esterase,Urine Small (Negative); Methadone Screen, Urine Not Detected (NotDetected); Mucus,Urine Rare /hpf; Nitrite,Urine Negative (Negative); Opiate Screen,Urine Not Detected (NotDetected); Oxycodone Screen, Urine Not Detected (NotDetected); PH, Urine 6.5 (5.0-8.0); Phencyclidine Screen,Urine Not Detected (NotDetected); Protein,Urine Trace (Negative); RBC,Urine 4 /hpf (0-5); Specific Gravity,Urine 1.023 (1.001-1.035); Squamous Epithelial Cell,Urine <1 /hpf (0-4); Tricyclic Antidepressant,Urine Not Detected (NotDetected); Urn Cannabinoid Scrn Not Detected (NotDetected); WBC,Urine 2 /hpf (0-5)
--- NOTE | 2022-02-21 13:05 | P.HP ---
Psychiatric H&P - . H&P Date: 02/21/22 History & Physical: Allergies Allergy/AdvReac Type Severity Reaction Status Date / Time No Known Allergies Allergy Verified 09/08/21 11:47 Vital Signs Temp 97.3 F L 02/21/22 11:10 Pulse 79 02/21/22 11:10 Resp 18 02/21/22 11:10 BP 177/96 02/21/22 11:10 Pulse Ox 98 02/21/22 05:26 FiO2 Intake & Output 02/20/22 02/21/22 02/21/22 18:59 06:59 18:59 Weight 78.018 kg 76.374 kg Laboratory Last Values Urine Color Yellow 02/21/22 10:36 Urine Appearance Clear (Clear) 02/21/22 10:36 Urine pH 6.5 (5.0-8.0) 02/21/22 10:36 Ur Specific [place] 1.023 (1.001-1.035) 02/21/22 10:36 Urine Protein Trace (Negative) H 02/21/22 10:36 Urine Glucose (UA) Negative (Negative) 02/21/22 10:36 Urine Ketones Negative (Negative) 02/21/22 10:36 Urine Blood Trace (Negative) H 02/21/22 10:36 Urine Nitrite Negative (Negative) 02/21/22 10:36 Urine Bilirubin Negative (Negative) 02/21/22 10:36 Urine Urobilinogen 6.0 mg/dL (<2.0) 02/21/22 10:36 Ur Leukocyte Esterase Small (Negative) H 02/21/22 10:36 Urine RBC 4 /hpf (0-5) 02/21/22 10:36 Urine WBC 2 /hpf (0-5) 02/21/22 10:36 Ur Squamous Epith Cells <1 /hpf (0-4) 02/21/22 10:36 Urine Mucus Rare /hpf (None) H 02/21/22 10:36 Urine Opiates Screen Not Detected (NotDetected) 02/21/22 10:36 Ur Oxycodone Screen Not Detected (NotDetected) 02/21/22 10:36 Urine Methadone Screen Not Detected (NotDetected) 02/21/22 10:36 Ur Propoxyphene Screen Not Detected (NotDetected) 02/21/22 10:36 Ur Barbiturates Screen Not Detected (NotDetected) 02/21/22 10:36 U Tricyclic Antidepress Not Detected (NotDetected) 02/21/22 10:36 Ur Phencyclidine Scrn Not Detected (NotDetected) 02/21/22 10:36 Ur Amphetamines Screen Not Detected (NotDetected) 02/21/22 10:36 U Methamphetamines Scrn Not Detected (NotDetected) 02/21/22 10:36 U Benzodiazepines Scrn Not Detected (NotDetected) 02/21/22 10:36 Urine Cocaine Screen Detected (NotDetected) H 02/21/22 10:36 U Marijuana (THC) Screen Not Detected (NotDetected) 02/21/22 10:36 Coronavirus (PCR) Not Detected (Not Detectd) 02/21/22 09:16 02/21/22 13:05 IDENTIFYING DATA: Patient is a single, unemployed, 51-year-old male with significant history of major depressive disorder who came to our hospital with a chief complaint of depression and suicidal ideation. HPI: Patient presented to the hospital on 02/21/2022, brought into the hospital on his own volition for suicidal ideation. As per APS report, the patient reported that he "lost his job a few weeks ago, his girlfriend left me, and felt that he had no reason to live anymore." He reports that he "just does not care." He reports that he began having suicidal thoughts with plans to jump off a bridge or walk into traffic. He signed voluntarily onto the psychiatric unit. The patient did test positive for cocaine. When evaluated on the unit, the patient does report that he has been increasingly depressed over the past week. He does acknowledge depressive symptoms including feelings of hopelessness, helplessness, decreased sleep, decreased appetite, as well as suicidal thoughts. He does report that he had plans to jump off a bridge or walk into traffic however did not attempt suicide. He denies any prior attempts at suicide. He denies any auditory or visual hallucinations. He reports no paranoia or other delusions. The patient was last discharged from our psychiatric unit in August. However, the patient reports that he did not grape picker any medications and did not follow up with his outpatient appointments. He is admitted for further evaluation and treatment. PAST PSYCHIATRIC HISTORY: Patient has a previous diagnosis of major depressive disorder and cocaine use disorder. He was last discharged on a regimen of mirtazapine however was nonadherent. He was admitted onto our psychiatric unit in August 2021. Patient denies any psychiatric outpatient follow-up. Patient denies any history of suicide attempts in the past. PMH: Past Medical History: Hypertension Additional Past Medical History / Comment(s): CABG 2020 History of Any Multi-Drug Resistant Organisms: None Reported Additional Past Surgical History / Comment(s): CABG 2020 Past Anesthesia/Blood Transfusion Reactions: No Reported Reaction Past Psychological History: Depression Smoking Status: Current every day smoker Past Alcohol Use History: Occasional Past Drug Use History: Cocaine, Methamphetamine ALLERGIES: NO KNOWN DRUG ALLERGIES CHEMICAL DEPENDENCY HISTORY: The patient does admit to crack cocaine use. He was sober for 5 months prior to losing his job back in August. Patient smokes cigarettes daily. FAMILY PSYCHIATRIC/SUBSTANCE USE HISTORY: No reported family psychiatric history SOCIAL HISTORY: Patient was born and raised in [place], [place]. He is the oldest of 3 siblings. His parents when he was 3. He has his GED. He denies any service. MENTAL STATUS EXAM: General Appearance: Patient appears to be stated age is alert, directable, and attempts to cooperate. Patient appears to have fair hygiene and grooming. Behavior: Patient is lying down in bed without any agitated behavior. Speech: Patient's speech is fluent and nonpressured. Mood/Affect: Patient reports their mood is depressed, affect is congruent and constricted. Suicidality/Homicidality: Patient denies having any homicidal ideation intent or plan. Denies any suicidal ideations intent or plan Perceptions: Patient denies any visual hallucinations and denies any auditory hallucinations Though content/process: There is no evidence of any delusional thought content and thought process is linear and goal-directed. Memory and concentration: AOX3, grossly intact for the purposes of this session. Can spell "WORLD" backwards Judgment and insight: Fair STRENGTHS/WEAKNESSES: Strength is that the patient is resourceful. Weakness is that the patient engages in substance abuse and is nonadherent with treatment. INTELLECT: average IMPRESSIONS: Major depressive disorder, recurrent, severe Cocaine use disorder PLAN: -Patient is admitted under voluntary status to [facility]HU for stabilization of psychiatric symptoms and safety. Patient signed adult voluntary form and medication consent and is placed in patient's chart. A second certification was completed and along with petition will be filed for court. -Medications : Will start patient on Remeron 15 mg by mouth at bedtime for depression - PRN Zyprexa and Vistaril for agitation/aggression -Patient was counselled on substance abuse and desired to cut back on use -Patient was informed of the risks, benefits and side effects of the medication and patient verbally consented to taking the medications. Patient signed med consent form and was placed in chart. -Internal Medicine consult to perform medical evaluation and physical. -NRT - nicotine patch -SW on board for discharge planning. Encourage patient to participate in groups to work on coping skills.
[2022-02-21] MEDS: ATORVASTATIN 80 MG TAB PO SCH (13:54)
[2022-02-21] MEDS: CLOPIDOGREL 75 MG TAB PO SCH (13:54)
[2022-02-21] MEDS: NICOTINE 14MG/24HR PATCH TRANSDERM SCH (13:54)
[2022-02-21] MEDS: PANTOPRAZOLE 40 MG TABLET PO SCH (13:54)
[2022-02-21] MEDS: lisinopriL 10 MG TAB PO SCH (13:54)
[2022-02-21] MEDS: MIRTAZAPINE 15 MG TAB PO SCH (21:17)
[2022-02-22 07:22] LABS: Basophils # (A) 0.1 k/uL (0-0.2); Basophils % (A) 1 %; Eosinophils # (A) 0.2 k/uL (0-0.7); Eosinophils % (A) 2 %; HCT 45.7 % (39.0-53.0); HGB 15.6 gm/dL (13.0-17.5); Lymphocytes % (A) 37 %; MCH 31.2 pg (25.0-35.0); MCHC 34.2 g/dL (31.0-37.0); MCV 91.1 fL (80.0-100.0); Mean Platelet Volume 8.4; Monocytes # (A) 0.4 k/uL (0-1.0); Monocytes % (A) 5 %; Neutrophils # (A) 4.3 k/uL (1.3-7.7); Neutrophils % (A) 53 %; Platelet Count 162 k/uL (150-450); RBC 5.02 m/uL (4.30-5.90); RDW 12.9 % (11.5-15.5); WBC 8.1 k/uL (3.8-10.6)
[2022-02-22 07:34] LABS: ALT 17 U/L (4-49); AST 21 U/L (17-59); African American GFR (CKD) >90 (>60 ml/min/1.73 sqM); Albumin 4.1 g/dL (3.5-5.0); Alkaline Phosphatase 81 U/L (38-126); Anion Gap 4 mmol/L; Blood Urea Nitrogen 14 mg/dL (9-20); Calcium 9.2 mg/dL (8.4-10.2); Carbon Dioxide 27 mmol/L (22-30); Chloride 109 mmol/L (98-107); Glucose 96 mg/dL (74-99); Non-African American GFR(CKD) 90 (>60 ml/min/1.73 sqM); Potassium 3.9 mmol/L (3.5-5.1); Sodium 140 mmol/L (137-145); Total Bilirubin 0.7 mg/dL (0.2-1.3)
[2022-02-22] MEDS: carvediloL 3.125 MG TAB PO SCH ×2 (08:35→20:55)
[2022-02-22] MEDS: DILTIAZEM CD 120 MG CAP.ER.24H PO SCH (08:35)
[2022-02-22] MEDS: ATORVASTATIN 80 MG TAB PO SCH (08:35)
[2022-02-22] MEDS: lisinopriL 10 MG TAB PO SCH (08:35)
[2022-02-22] MEDS: PANTOPRAZOLE 40 MG TABLET PO SCH (08:35)
[2022-02-22] MEDS: NICOTINE 14MG/24HR PATCH TRANSDERM SCH (08:35)
[2022-02-22] MEDS: CLOPIDOGREL 75 MG TAB PO SCH (08:35)
[2022-02-22 09:30] VITALS: BMI 24.8
--- NOTE | 2022-02-22 10:24 | P.PN ---
Progress Note - Text Progress Note Date: 02/22/22 Interval History: Patient was seen resting in bed and was directable and agreeable to speak with telegraphic typewriter mechanic in his room., The patient is denying any suicidal or homicidal ideation, intent and/or plan. He is not reporting any auditory or visual hallucinations. He denies any paranoia or other delusions. The patient has been adherent with his medication and is not endorsing any significant side effects at this time. He reports that he plans to return to his mother's home upon discharge. He expresses no issues or concerns this provider. Mental Status Exam: General Appearance: Patient appears to be stated age is alert, directable, and cooperative. Behavior: Patient is calmly seated without any agitated behavior. Speech: Patient's speech is fluent and nonpressured. Mood/Affect: Mood is improving mildly, affect is congruent and constricted. Suicidality/Homicidality: Patient denies having any suicidal or homicidal ideation intent or plan. Perceptions: Patient denies any visual hallucinations and denies any auditory hallucinations Though content/process: There is no evidence of any delusional thought content and thought process is linear and goal-directed. Memory and concentration: AOX3, grossly intact for the purposes of this session Judgment and insight: Improving mildly Vital Signs Temp 97.2 F L 02/22/22 06:46 Pulse 66 02/22/22 06:46 Resp 14 02/22/22 06:46 BP 179/83 02/22/22 06:46 Pulse Ox 98 02/21/22 05:26 FiO2 Intake & Output 02/21/22 02/22/22 02/22/22 18:59 06:59 18:59 Weight 76.374 kg 76.374 kg Laboratory Results - Last 24 Hours 02/21/22 02/21/22 02/22/22 10:36 10:36 06:39 WBC 8.1 RBC 5.02 Hgb 15.6 Hct 45.7 MCV 91.1 MCH 31.2 MCHC 34.2 RDW 12.9 Plt Count 162 MPV 8.4 Neutrophils % 53 Lymphocytes % 37 Monocytes % 5 Eosinophils % 2 Basophils % 1 Neutrophils # 4.3 Lymphocytes # 3.0 Monocytes # 0.4 Eosinophils # 0.2 Basophils # 0.1 Sodium Potassium Chloride Carbon Dioxide Anion Gap BUN Creatinine Est GFR (CKD-EPI)AfAm Est GFR (CKD-EPI)NonAf Glucose Calcium Total Bilirubin AST ALT Alkaline Phosphatase Total Protein Albumin TSH Urine Color Yellow Urine Appearance Clear Urine pH 6.5 Ur Specific Bath 1.023 Urine Protein Trace H Urine Glucose (UA) Negative Urine Ketones Negative Urine Blood Trace H Urine Nitrite Negative Urine Bilirubin Negative Urine Urobilinogen 6.0 Ur Leukocyte Esterase Small H Urine RBC 4 Urine WBC 2 Ur Squamous Epith Cells <1 Urine Mucus Rare H Urine Opiates Screen Not Detected Ur Oxycodone Screen Not Detected Urine Methadone Screen Not Detected Ur Propoxyphene Screen Not Detected Ur Barbiturates Screen Not Detected U Tricyclic Antidepress Not Detected Ur Phencyclidine Scrn Not Detected Ur Amphetamines Screen Not Detected U Methamphetamines Scrn Not Detected U Benzodiazepines Scrn Not Detected Urine Cocaine Screen Detected H U Marijuana (THC) Screen Not Detected 02/22/22 06:39 WBC RBC Hgb Hct MCV MCH MCHC RDW Plt Count MPV Neutrophils % Lymphocytes % Monocytes % Eosinophils % Basophils % Neutrophils # Lymphocytes # Monocytes # Eosinophils # Basophils # Sodium 140 Potassium 3.9 Chloride 109 H Carbon Dioxide 27 Anion Gap 4 BUN 14 Creatinine 0.97 Est GFR (CKD-EPI)AfAm >90 Est GFR (CKD-EPI)NonAf 90 Glucose 96 Calcium 9.2 Total Bilirubin 0.7 AST 21 ALT 17 Alkaline Phosphatase 81 Total Protein 6.0 L Albumin 4.1 TSH 0.609 Urine Color Urine Appearance Urine pH Ur Specific Bath Urine Protein Urine Glucose (UA) Urine Ketones Urine Blood Urine Nitrite Urine Bilirubin Urine Urobilinogen Ur Leukocyte Esterase Urine RBC Urine WBC Ur Squamous Epith Cells Urine Mucus Urine Opiates Screen Ur Oxycodone Screen Urine Methadone Screen Ur Propoxyphene Screen Ur Barbiturates Screen U Tricyclic Antidepress Ur Phencyclidine Scrn Ur Amphetamines Screen U Methamphetamines Scrn U Benzodiazepines Scrn Urine Cocaine Screen U Marijuana (THC) Screen Assessment Major depressive disorder, recurrent, severe Cocaine use disorder Plan: -Patient continues to meet criteria for inpatient psychiatric admission for symptom stabilization and safety. Patient has signed adult voluntary form and medication consent and was placed in patient's chart. -Medications: Remeron 15 mg by mouth at bedtime for depression -When necessary Zyprexa and Vistaril for agitation/aggression. -NRT - nicotine patch -SW on board for discharge planning. Encouraged the patient to participate in milieu.
[2022-02-22 14:36] LABS: LDL Cholesterol,Calculated 82.2 mg/dL (0.0-131.0); VLDL Calculation 19.48 mg/dL (5.00-40.00)
[2022-02-22] MEDS: MIRTAZAPINE 15 MG TAB PO SCH (20:55)
[2022-02-23] MEDS: carvediloL 3.125 MG TAB PO SCH ×2 (08:48→20:44)
[2022-02-23] MEDS: PANTOPRAZOLE 40 MG TABLET PO SCH (08:48)
[2022-02-23] MEDS: ATORVASTATIN 80 MG TAB PO SCH (08:48)
[2022-02-23] MEDS: lisinopriL 10 MG TAB PO SCH (08:48)
[2022-02-23] MEDS: CLOPIDOGREL 75 MG TAB PO SCH (08:49)
[2022-02-23] MEDS: DILTIAZEM CD 120 MG CAP.ER.24H PO SCH (08:49)
[2022-02-23] MEDS: NICOTINE 14MG/24HR PATCH TRANSDERM SCH (08:52)
--- NOTE | 2022-02-23 16:27 | P.PN ---
Progress Note - Text Progress Note Date: 02/23/22 Interval history: Patient was seen isolating to his room and resting in bed. He was directable and agreeable to speak with tag writer. He reports good mood, sleep and appetite, and is requesting discharge. At this time, patient denies any suicidal or homicidal ideation, intent or plan. Denies any auditory or visual hallucinations. Patient denies any side effects from the medications and has been compliant with meds. Mental status exam: General Appearance: Patient appears to be stated age, dressed in casual attire, adequate hygiene. Behavior: No agitated behavior. Patient is calm and directable. Speech: Patient's speech is fluent and non-pressured. Mood/Affect: Mood is improving mildly, affect is congruent and constricted. Suicidality/Homicidality: Patient denies having any suicidal or homicidal ideation intent or plan. Perceptions: Patient denies any auditory or visual hallucinations. Though content/process: There is no evidence of any delusional thought content and thought process is linear and goal-directed. Memory and concentration: AOX3, grossly intact for the purposes of this session Judgment and insight: improving mildly Assessment/Plan: Continue with current diagnosis. Patient continues to meet criteria for inpatient psychiatric admission for symptom stabilization and safety. Patient will be maintained on current psychotropic medication regimen. Monitor for medication compliance and for any psychotropic medication side effects. Will continue to monitor ongoing response to treatment. Encouraged participation in milieu.
[2022-02-23] MEDS: MIRTAZAPINE 15 MG TAB PO SCH (20:44)
--- NOTE | 2022-02-24 00:03 | P.CONS ---
History of Present Illness - Reason for Consult Consult date: 02/24/22 - History of Present Illness The patient is a 51-year-old male with a PMH of CAD status post CABG, hypertension, hyperlipidemia, and polysubstance abuse who presented to the emergency room and depression and suicidal ideation. The patient was admitted to the mental health unit where he was seen and evaluated. He reports that over the past few weeks, he has been undergoing a tremendous amount of stress as he has lost his job and his housing and is currently staying at home [facility] and plans to go to jail home. He denied any physical complaints at the time of interview. He denied experiencing chest discomfort, shortness of breath, fever, chills, cough, nausea, vomiting, abdominal pain, diarrhea. He reports continued use 2 packs of cigarettes daily but denied any current illicit substance use or alcohol use. His urine toxicology did test positive for cocaine. Review of systems: Pertinent positives and negatives as discussed in HPI, a complete review of systems was performed and all other systems are negative. Physical examination: General: non toxic, no distress, appears at stated age, normal weight Derm: no unusual rashes/lesions, no unusual ecchymoses, warm, dry Head: atraumatic, normocephalic, symmetric Eyes: EOMI, no lid lag, anicteric sclera ENT: Nose and ears atraumatic, no thrush, no pharyngeal erythema Neck: trachea midline, supple Mouth: no lip lesion, mucus membranes moist Cardiovascular: S1S2 reg, no murmur, no edema Lungs: CTA bilateral, no rhonchi, no rales , no accessory muscle use Abdominal: soft, nontender to palpation, no guarding Ext: no gross muscle atrophy, no contractures, Neuro: No gross focal neuro deficits noted Psych: Alert, oriented, appropriate affect Assessment/plan Chronic conditions: Coronary artery disease, hypertension, hyperlipidemia -Continue with home meds Cocaine abuse -Strongly advised on the importance of cessation Depression with suicidal ideation -As per psychiatry Thank you for allowing us to participate in the care of this patient. We will follow peripherally. Do not hesitate to contact us with questions. Someone can be reached from the [facility] hospitalist group at all hours of the day at [phone]. Past Medical History Past Medical History: Hypertension Additional Past Medical History / Comment(s): CABG 2020 History of Any Multi-Drug Resistant Organisms: None Reported Additional Past Surgical History / Comment(s): CABG 2020 Past Anesthesia/Blood Transfusion Reactions: No Reported Reaction Past Psychological History: Depression Smoking Status: Current every day smoker Past Alcohol Use History: Occasional Past Drug Use History: Cocaine, Methamphetamine - Past Family History Father Family Medical History: Coronary Artery Disease (CAD) Medications and Allergies Home Medications Medication Instructions Recorded Confirmed Type Atorvastatin [Lipitor] 80 mg PO DAILY 09/08/21 02/21/22 History Clopidogrel [Plavix] 75 mg PO DAILY 09/08/21 02/21/22 History Diltiazem Cd [Cardizem CD] 120 mg PO DAILY 09/08/21 02/21/22 History Pantoprazole [Protonix] 40 mg PO DAILY 09/08/21 02/21/22 History carvediloL [Coreg] 3.125 mg PO BID 09/08/21 02/21/22 History lisinopriL [Zestril] 10 mg PO DAILY 09/08/21 02/21/22 History Allergies Allergy/AdvReac Type Severity Reaction Status Date / Time No Known Allergies Allergy Verified 09/08/21 11:47 Physical Exam Vitals: Vital Signs Temp Pulse Resp BP Pulse Ox 02/23/22 08:50 97.8 F 82 18 176/101 96 Results CBC & Chem 7: 02/22/22 06:39 02/22/22 06:39
[2022-02-24] MEDS: PANTOPRAZOLE 40 MG TABLET PO SCH (08:28)
[2022-02-24] MEDS: ATORVASTATIN 80 MG TAB PO SCH (08:30)
[2022-02-24] MEDS: carvediloL 3.125 MG TAB PO SCH ×2 (08:30→20:49)
[2022-02-24] MEDS: CLOPIDOGREL 75 MG TAB PO SCH (08:30)
[2022-02-24] MEDS: DILTIAZEM CD 120 MG CAP.ER.24H PO SCH (08:30)
[2022-02-24] MEDS: NICOTINE 14MG/24HR PATCH TRANSDERM SCH (08:32)
[2022-02-24] MEDS: lisinopriL 10 MG TAB PO SCH (08:32)
--- NOTE | 2022-02-24 14:54 | P.PN ---
Progress Note - Text Progress Note Date: 02/24/22 Interval history: Patient was seen on his way to attend group today. He was directable and agreeable to speak with technical writer and editor. He reports good mood, sleep and appetite, and is hopeful for discharge. At this time, patient denies any suicidal or homicidal ideation, intent or plan. Denies any auditory or visual hallucinations. Patient denies any side effects from the medications and has been compliant with meds. Mental status exam: General Appearance: Patient appears to be stated age, dressed in casual attire, adequate hygiene. Behavior: No agitated behavior. Patient is calm and directable. Speech: Patient's speech is fluent and non-pressured. Mood/Affect: Mood is improving mildly, affect is congruent and constricted. Suicidality/Homicidality: Patient denies having any suicidal or homicidal ideation intent or plan. Perceptions: Patient denies any auditory or visual hallucinations. Though content/process: There is no evidence of any delusional thought content and thought process is linear and goal-directed. Memory and concentration: AOX3, grossly intact for the purposes of this session Judgment and insight: improving mildly Assessment/Plan: Continue with current diagnosis. Patient continues to meet criteria for inpatient psychiatric admission for symptom stabilization and safety. Patient will be maintained on current psychotropic medication regimen. Monitor for medication compliance and for any psychotropic medication side effects. Will continue to monitor ongoing response to treatment. Encouraged participation in milieu.
[2022-02-24] MEDS: MIRTAZAPINE 15 MG TAB PO SCH (20:49)
[2022-02-25 06:57] VITALS: RESP 16; TEMP 97.9
[2022-02-25] MEDS: NICOTINE 14MG/24HR PATCH TRANSDERM SCH (08:18)
[2022-02-25] MEDS: ATORVASTATIN 80 MG TAB PO SCH (08:19)
[2022-02-25] MEDS: PANTOPRAZOLE 40 MG TABLET PO SCH (08:19)
[2022-02-25] MEDS: DILTIAZEM CD 120 MG CAP.ER.24H PO SCH (08:20)
[2022-02-25] MEDS: lisinopriL 10 MG TAB PO SCH (08:20)
[2022-02-25] MEDS: CLOPIDOGREL 75 MG TAB PO SCH (08:20)
[2022-02-25] MEDS: carvediloL 3.125 MG TAB PO SCH (08:20)
[2022-02-25 08:21] VITALS: PULSE 79
[2022-02-25 10:18] VITALS: BP 167/100
--- NOTE | 2022-02-25 11:34 | P.DS ---
Providers Date of admission: 02/21/22 09:58 Expected date of discharge: 02/25/22 Attending physician: Omar Cobian MD Consults: 02/21/22 10:06 Consult Physician Routine Consulting Provider: Maria A Olivier Consult Reason/Comments: H and P Do you want consulting provider notified?: Yes Primary care physician: Stated None - Discharge Diagnosis(es) (1) Major depressive disorder Current Visit: Yes Status: Acute Priority: High (2) Cocaine use disorder Current Visit: Yes Status: Chronic Priority: Medium (3) Tobacco use disorder Current Visit: Yes Status: Chronic Priority: Medium Hospital Course: Admission HPI: Patient is a single, unemployed, 51-year-old male with significant history of major depressive disorder who came to our hospital with a chief complaint of depression and suicidal ideation. Patient presented to the hospital on 02/21/2022, brought into the hospital on his own volition for suicidal ideation. As per EPS report, the patient reported that he "lost his job a few weeks ago, his girlfriend left me, and felt that he had no reason to live anymore." He reports that he "just does not care." He reports that he began having suicidal thoughts with plans to jump off a bridge or walk into traffic. He signed voluntarily onto the psychiatric unit. The patient did test positive for cocaine. When evaluated on the unit, the patient does report that he has been increasingly depressed over the past week. He does acknowledge depressive symptoms including feelings of hopelessness, helplessness, decreased sleep, decreased appetite, as well as suicidal thoughts. He does report that he had plans to jump off a bridge or walk into traffic however did not attempt suicide. He denies any prior attempts at suicide. He denies any auditory or visual hallucinations. He reports no paranoia or other delusions. The patient was last discharged from our psychiatric unit in August. However, the patient reports that he did not hot die picker any medications and did not follow up with his outpatient appointments. He is admitted for further evaluation and treatment. Patient has a previous diagnosis of major depressive disorder and cocaine use disorder. He was last discharged on a regimen of mirtazapine however was nonadherent. He was admitted onto our psychiatric unit in August 2021. Patient denies any psychiatric outpatient follow-up. Patient denies any history of suicide attempts in the past. Hospital course: Upon admission to the unit patient was initially calm and cooperative and endorsed suicidal ideation with multiple plans. Patient got along well with other patients on the unit and followed unit protocol. Patient was compliant with the medications and denied any side effects throughout hospital course. Patient was started on remeron at bedtime for depression, insomnia, and appetite stimulation. Patient spoke of his stressors and engaged in therapy both group and individual. Patient was also seen by medical team for history and physical exam. Throughout the course of the hospitalization patient gradually improved with regards to mood, appetite, sleep and became future oriented with improved insight and judgment. On the day of discharge patient denied any suicidal or homicidal ideations intent or plan denied any auditory or visual hallucinations. Patient endorsed wanting to live for his health and family. The patient denied any access to guns or weapons. Patient denied any paranoia and did not endorse any delusions. Patient does have a significant history of substance abuse however was counseled on abstaining from all substances including alcoholm tobacco, and marijuana. Patient was offered however declined inpatient substance-abuse rehab. Patient was also counseled on the medications and need for regular compliance and was encouraged to follow-up with their outpatient appointment for mental health and also for primary care. Prior to discharge a family meeting will be arranged by foster care social worker to answer any questions and ensure safety upon discharge. Patient would be staying with his mother upon discharge. He denies any chest pain, SOB, light-headedness, headache, or other medical issues. Mental status exam: General Appearance: Patient appears to be stated age is alert, pleasant, and cooperative. Patient is in no acute distress and has fair hygiene and grooming Behavior: Patient is calmly seated without any agitated behavior. Speech: Patient's speech is fluent and nonpressured. Mood/Affect: Patient reports their mood is "much better", affect is congruent and euthymic. Suicidality/Homicidality: Patient denies having any suicidal or homicidal ideation intent or plan. Perceptions: Patient denies any auditory or visual hallucinations. Though content/process: There is no evidence of any delusional thought content and thought process is linear and goal-directed. more future oriented Memory and concentration: AOX3, grossly intact for the purposes of this session. Can spell "WORLD" backwards correctly. Judgment and insight: Improved with guarded prognosis Impression: Major depressive disorder, recurrent, severe Cocaine use disorder Tobacco use disorder Plan: -Continue with discharge today as patient has improved and stabilized psychiatrically and is not currently an imminent threat to himself and/or others. Patient will remain at chronically elevated risk for harm to self and/or others due to his cocaine abuse -Continue medications: Remeron 15 mg at bedtime for depression Habitrol patches for nicotine cessation. -Patient was counseled on the need for medication compliance and appropriate follow-up at mental health and also primary care for medical issues. Patient verbalized understanding and agreed. -Social work to arrange for and conduct family meeting to ensure safety upon discharge and answer any questions/concerns. Social work also to arrange for patients follow up appointments for psychiatric care along with follow up with primary care provider. -Patient counseled on abstaining from recreational drugs and marijuana and alc ohol. Was informed/educated on the adverse effects on their physical and mental health. Patient verbally agreed and understood. Patient was offered substance abuse treatment however declined at this time. -Patient was instructed to return to the hospital or seek immediate medical care if their psychiatric or medical symptoms do worsen or reoccur. -Psychoeducation and supportive therapy provided to patient. Risks and benefits of pharmacological treatment versus the risks and benefits of nontreatment weight and discussed. Informed consent discussion held. Common side effects of psychotropics discussed such as, but not limited to headache, GI disturbance, sexual dysfunction, movement disorders, sedation, and orthostatic hypotension. Life threatening and blackbox warnings of prescribed medications also discussed. Potential risks of operating a vehicle or heavy machinery discussed with patient at length. Advised on importance of compliance and a reliable and responsible manner. Patient advised to review FDA consumer labeling of all medications prior to taking. Patient verbalized understanding of potential risks, and agrees with current treatment plan. Patient advised to medically contact physician/emergency personnel if any acute changes in condition occur. Vital Signs Temp 97.9 F 02/25/22 06:40 Pulse 79 02/25/22 08:21 Resp 16 02/25/22 06:40 BP 167/100 02/25/22 10:18 Pulse Ox 96 02/23/22 08:50 FiO2 Laboratory Results WBC 8.1 k/uL (3.8-10.6) 02/22/22 06:39 RBC 5.02 m/uL (4.30-5.90) 02/22/22 06:39 Hgb 15.6 gm/dL (13.0-17.5) 02/22/22 06:39 Hct 45.7 % (39.0-53.0) 02/22/22 06:39 MCV 91.1 fL (80.0-100.0) 02/22/22 06:39 MCH 31.2 pg (25.0-35.0) 02/22/22 06:39 MCHC 34.2 g/dL (31.0-37.0) 02/22/22 06:39 RDW 12.9 % (11.5-15.5) 02/22/22 06:39 Plt Count 162 k/uL (150-450) 02/22/22 06:39 MPV 8.4 02/22/22 06:39 Neutrophils % 53 % 02/22/22 06:39 Lymphocytes % 37 % 02/22/22 06:39 Monocytes % 5 % 02/22/22 06:39 Eosinophils % 2 % 02/22/22 06:39 Basophils % 1 % 02/22/22 06:39 Neutrophils # 4.3 k/uL (1.3-7.7) 02/22/22 06:39 Lymphocytes # 3.0 k/uL (1.0-4.8) 02/22/22 06:39 Monocytes # 0.4 k/uL (0-1.0) 02/22/22 06:39 Eosinophils # 0.2 k/uL (0-0.7) 02/22/22 06:39 Basophils # 0.1 k/uL (0-0.2) 02/22/22 06:39 Sodium 140 mmol/L (137-145) 02/22/22 06:39 Potassium 3.9 mmol/L (3.5-5.1) 02/22/22 06:39 Chloride 109 mmol/L (98-107) H 02/22/22 06:39 Carbon Dioxide 27 mmol/L (22-30) 02/22/22 06:39 Anion Gap 4 mmol/L 02/22/22 06:39 BUN 14 mg/dL (9-20) 02/22/22 06:39 Creatinine 0.97 mg/dL (0.66-1.25) 02/22/22 06:39 Est GFR (CKD-EPI)AfAm >90 (>60 ml/min/1.73 sqM) 02/22/22 06:39 Est GFR (CKD-EPI)NonAf 90 (>60 ml/min/1.73 sqM) 02/22/22 06:39 Glucose 96 mg/dL (74-99) 02/22/22 06:[address] Glu mg/dL 123 02/22/22 06:39 Hemoglobin A1c 5.9 % (0.0-6.0) 02/22/22 06:39 Calcium 9.2 mg/dL (8.4-10.2) 02/22/22 06:39 Total Bilirubin 0.7 mg/dL (0.2-1.3) 02/22/22 06:39 AST 21 U/L (17-59) 02/22/22 06:39 ALT 17 U/L (4-49) 02/22/22 06:39 Alkaline Phosphatase 81 U/L (38-126) 02/22/22 06:39 Total Protein 6.0 g/dL (6.3-8.2) L 02/22/22 06:39 Albumin 4.1 g/dL (3.5-5.0) 02/22/22 06:39 Triglycerides 97.40 mg/dL (0.00-149.00) 02/22/22 06:39 Cholesterol 144.00 mg/dL (0.00-200.00) 02/22/22 06:39 LDL Cholesterol, Calc 82.2 mg/dL (0.0-131.0) 02/22/22 06:39 VLDL Cholesterol, Calc 19.48 mg/dL (5.00-40.00) 02/22/22 06:39 HDL Cholesterol 42.30 mg/dL (40.00-60.00) 02/22/22 06:39 Cholesterol/HDL Ratio 3.40 Ratio 02/22/22 06:39 TSH 0.609 mIU/L (0.465-4.680) 02/22/22 06:39 Urine Color Yellow 02/21/22 10:36 Urine Appearance Clear (Clear) 02/21/22 10:36 Urine pH 6.5 (5.0-8.0) 02/21/22 10:36 Ur Specific [place] 1.023 (1.001-1.035) 02/21/22 10:36 Urine Protein Trace (Negative) H 02/21/22 10:36 Urine Glucose (UA) Negative (Negative) 02/21/22 10:36 Urine Ketones Negative (Negative) 02/21/22 10:36 Urine Blood Trace (Negative) H 02/21/22 10:36 Urine Nitrite Negative (Negative) 02/21/22 10:36 Urine Bilirubin Negative (Negative) 02/21/22 10:36 Urine Urobilinogen 6.0 mg/dL (<2.0) 02/21/22 10:36 Ur Leukocyte Esterase Small (Negative) H 02/21/22 10:36 Urine RBC 4 /hpf (0-5) 02/21/22 10:36 Urine WBC 2 /hpf (0-5) 02/21/22 10:36 Ur Squamous Epith Cells <1 /hpf (0-4) 02/21/22 10:36 Urine Mucus Rare /hpf (None) H 02/21/22 10:36 Urine Opiates Screen Not Detected (NotDetected) 02/21/22 10:36 Ur Oxycodone Screen Not Detected (NotDetected) 02/21/22 10:36 Urine Methadone Screen Not Detected (NotDetected) 02/21/22 10:36 Ur Propoxyphene Screen Not Detected (NotDetected) 02/21/22 10:36 Ur Barbiturates Screen Not Detected (NotDetected) 02/21/22 10:36 U Tricyclic Antidepress Not Detected (NotDetected) 02/21/22 10:36 Ur Phencyclidine Scrn Not Detected (NotDetected) 02/21/22 10:36 Ur Amphetamines Screen Not Detected (NotDetected) 02/21/22 10:36 U Methamphetamines Scrn Not Detected (NotDetected) 02/21/22 10:36 U Benzodiazepines Scrn Not Detected (NotDetected) 02/21/22 10:36 Urine Cocaine Screen Detected (NotDetected) H 02/21/22 10:36 U Marijuana (THC) Screen Not Detected (NotDetected) 02/21/22 10:36 Coronavirus (PCR) Not Detected (Not Detectd) 02/21/22 09:16 Allergies Allergy/AdvReac Type Severity Reaction Status Date / Time No Known Allergies Allergy Verified 09/08/21 11:47 Patient Condition at Discharge: Stable Plan - Discharge Summary Discharge Rx Participant: No New Discharge Prescriptions: New Nicotine 14Mg/24Hr Patch [Habitrol] 1 patch TRANSDERM DAILY 14 Days patch Mirtazapine [Remeron] 15 mg PO HS 30 Days tab Continue lisinopriL [Zestril] 10 mg PO DAILY carvediloL [Coreg] 3.125 mg PO BID Diltiazem Cd [Cardizem CD] 120 mg PO DAILY Atorvastatin [Lipitor] 80 mg PO DAILY Clopidogrel [Plavix] 75 mg PO DAILY No Action Pantoprazole [Protonix] 40 mg PO DAILY Discharge Medication List Atorvastatin [Lipitor] 80 mg PO DAILY 09/08/21 [History] Clopidogrel [Plavix] 75 mg PO DAILY 09/08/21 [History] Diltiazem Cd [Cardizem CD] 120 mg PO DAILY 09/08/21 [History] Pantoprazole [Protonix] 40 mg PO DAILY 09/08/21 [History] carvediloL [Coreg] 3.125 mg PO BID 09/08/21 [History] lisinopriL [Zestril] 10 mg PO DAILY 09/08/21 [History] Mirtazapine [Remeron] 15 mg PO HS 30 Days tab 02/25/22 [Rx] Nicotine 14Mg/24Hr Patch [Habitrol] 1 patch TRANSDERM DAILY 14 Days patch 02/25/22 [Rx] Follow up Appointment(s)/Referral(s): None,Stated [Primary Care Provider] - 1-2 days Discharge Disposition: HOME SELF-CARE
== END 2022-02-25 12:33 | disposition home or self-care (01) | DRG 885 ==
LOC: EC 05:02 → 3MHU 09:58
PROVIDERS: ADMIT Psychiatry & Neurology Psychiatry; ATTEND Psychiatry & Neurology Psychiatry
DX: F33.2 Major depressive disorder, recurrent severe without psychotic features (principal); R45.851 Suicidal ideations; E78.5 Hyperlipidemia, unspecified; F14.90 Cocaine use, unspecified, uncomplicated; F17.210 Nicotine dependence, cigarettes, uncomplicated; G47.00 Insomnia, unspecified; I10 Essential (primary) hypertension; I25.10 Atherosclerotic heart disease of native coronary artery without angina pectoris; Z56.0 Unemployment, unspecified; Z59.01 Sheltered homelessness; Z79.02 Long term (current) use of antithrombotics/antiplatelets; Z79.899 Other long term (current) drug therapy; Z95.1 Presence of aortocoronary bypass graft; Z20.822 Contact with and (suspected) exposure to COVID-19
CPT/HCPCS: 80053; 80061; 80306; 81001; 82075; 83036; 84443; 85025; 87635; 99285

== ENCOUNTER 2022-02-27 02:21 | Emergency (ER) | payer OTHER ==
[2022-02-27 02:53] VITALS: BP 164/93; PULSE 86; RESP 18; TEMP 98
--- NOTE | 2022-02-27 03:19 | ED ---
Recheck HPI - General Chief Complaint: Recheck/Abnormal Lab/Rx Stated Complaint: chest pain, hip pain Time Seen by Provider: 02/27/22 03:13 Source: patient, RN notes reviewed, old records reviewed Mode of arrival: ambulatory Limitations: no limitations - History of Present Illness Initial Comments: This is a 51-year-old male to the emergency department for evaluation. Patient resents today for evaluation patient Dese for bilateral lower extremity leg pain numbness tingling. Patient does have history of recent mental health admit. No trauma noted. He denies any change in medications no loss of bowel or bladder patient is ambulatory in the ER MD Complaint: other (Lower extremity numbness and tingling) Returns Today for: persistent/worsening pain related to initial visit Symptoms Since Prior Visit: worsening pain Associated Symptoms: malaise Treatments Prior to Arrival: other (0) - Related Data Home Medications Medication Instructions Recorded Confirmed Atorvastatin [Lipitor] 80 mg PO DAILY 09/08/21 02/21/22 Clopidogrel [Plavix] 75 mg PO DAILY 09/08/21 02/21/22 Diltiazem Cd [Cardizem CD] 120 mg PO DAILY 09/08/21 02/21/22 Pantoprazole [Protonix] 40 mg PO DAILY 09/08/21 02/21/22 carvediloL [Coreg] 3.125 mg PO BID 09/08/21 02/21/22 lisinopriL [Zestril] 10 mg PO DAILY 09/08/21 02/21/22 Previous Rx's Medication Instructions Recorded Mirtazapine [Remeron] 15 mg PO HS 30 Days tab 02/25/22 Nicotine 14Mg/24Hr Patch [Habitrol] 1 patch TRANSDERM DAILY 14 Days 02/25/22 patch Allergies Allergy/AdvReac Type Severity Reaction Status Date / Time No Known Allergies Allergy Verified 09/08/21 11:47 Review of Systems ROS Statement: Those systems with pertinent positive or pertinent negative responses have been documented in the HPI. ROS Other: All systems not noted in ROS Statement are negative. Past Medical History Past Medical History: Hypertension Additional Past Medical History / Comment(s): CABG 2020 History of Any Multi-Drug Resistant Organisms: None Reported Additional Past Surgical History / Comment(s): CABG 2020 Past Anesthesia/Blood Transfusion Reactions: No Reported Reaction Past Psychological History: Depression Smoking Status: Current every day smoker Past Alcohol Use History: Occasional Past Drug Use History: Cocaine, Methamphetamine - Past Family History Father Family Medical History: Coronary Artery Disease (CAD) General Exam General appearance: alert, in no apparent distress Head exam: Present: atraumatic, normocephalic, normal inspection Eye exam: Present: normal appearance, PERRL, EOMI. Absent: scleral icterus, conjunctival injection, periorbital swelling ENT exam: Present: normal exam, mucous membranes moist Neck exam: Present: normal inspection. Absent: tenderness, meningismus, lymphadenopathy Respiratory exam: Present: normal lung sounds bilaterally. Absent: respiratory distress, wheezes, rales, rhonchi, stridor Cardiovascular Exam: Present: regular rate, normal rhythm, normal heart sounds. Absent: systolic murmur, diastolic murmur, rubs, gallop, clicks GI/Abdominal exam: Present: soft, normal bowel sounds. Absent: distended, tenderness, guarding, rebound, rigid Extremities exam: Present: normal inspection, full ROM, normal capillary refill. Absent: tenderness, pedal edema, joint swelling, calf tenderness Back exam: Present: normal inspection Neurological exam: Present: alert, oriented X3, CN II-XII intact Psychiatric exam: Present: normal affect, normal mood Skin exam: Present: warm, dry, intact, normal color. Absent: rash Course Vital Signs 02/27/22 02:51 Temperature 98 F Pulse Rate 86 Respiratory 18 Rate Blood Pressure 164/93 O2 Sat by Pulse 98 Oximetry - Reevaluation(s) Reevaluation #1: 03/03/22 Medical record is reviewed Patient symptoms improved here in the ER Patient is able to ambulate here in the ER Patient informed of results and questions answered Medical Decision Making - Medical Decision Making 48 female who is known to our ER coming in for evaluation of lower extremity numbness and tingling patient is able to ambulate walk without difficulty no significant injuries or trauma no loss of bowel or bladder. Patient does have feeling in both legs and can be discharged home Disposition Clinical Impression: Bilateral leg pain, Paresthesia of bilateral legs Disposition: HOME SELF-CARE Condition: Good Instructions (If sedation given, give patient instructions): Paresthesia (ED) Is patient prescribed a controlled substance at d/c from ED?: No Referrals: None,Stated [Primary Care Provider] - 1-2 days Time of Disposition: 04:15
[2022-02-27] MEDS ORDERED: ACET/COD 300 MG/30 MG STARTER PACK 6 TAB BTL PO STA (04:14)
[2022-02-27] MEDS ORDERED: IBUPROFEN 600 MG STARTER PACK 4 TAB BTL PO STA (04:14)
== END 2022-02-27 04:26 | disposition home or self-care (01) ==
LOC: EC 02:21
DX: R20.2 Paresthesia of skin (principal); M79.605 Pain in left leg; M79.604 Pain in right leg; I10 Essential (primary) hypertension; F32.A Depression, unspecified; F17.200 Nicotine dependence, unspecified, uncomplicated; Z79.899 Other long term (current) drug therapy
CPT/HCPCS: 99285